=== PATIENT | male | born 1965 | race Caucasian/White ===

== ENCOUNTER 2019-02-20 08:10 | Emergency (ER) | payer BC ==
[~2019-02-20] VITALS: Ht 175.3 cm; Wt 68.2 kg
[2019-02-20 08:13] VITALS: Ht 175.3 cm; Wt 68.2 kg
[2019-02-20] MEDS ORDERED: TENORMIN50 MG PO (08:14)
[2019-02-20 08:43] LABS: HEMATOCRIT 40.2 % (42.0-54.0); HEMOGLOBIN 14.2 g/dL (13.5-17.5); LYMPHOCYTES 12.7 % (15-50); MCH 32.7 pg (26.0-34.0); MCHC 35.3 g/dL (31.0-37.0); MCV 92.6 fL (80.0-100.0); MEAN PLATELET VOLUME 10.3 fL (7.4-10.4); NEUTROPHILS 82.4 % (40-80); PLATELET COUNT 247 10x3/uL (130-400); RBC 4.34 10x6/uL (4.20-6.10); RDW 12.6 % (11.5-14.5); WBC 7.5 10x3/uL (4.8-10.8)
[2019-02-20 08:49] LABS: CALC OSMOLALITY 279 mosm/kg (275-300); CALCIUM 9.3 mg/dL (8.5-10.1); CARBON DIOXIDE 30.2 mmol/L (21.0-32.0); CHLORIDE - SERUM 103 mmol/L (98-107); CREATININE - SERUM 0.8 mg/dL (0.6-1.3); GLUCOSE 103 mg/dL (74-106); POTASSIUM - SERUM 4.3 mmol/L (3.5-5.1); SODIUM 141 mmol/L (136-145); UREA NITROGEN 10 mg/dL (7-18); eGFR NON AFRICAN AMERICAN > 90 mL/min (90-120)
[2019-02-20 08:58] LABS: APTT 30.7 SECONDS (22.8-39.4); INR 1.06 (0.85-1.17); PROTIME 13.3 SECONDS (11.6-15.0)
[2019-02-20 09:06] LABS: ALKALINE PHOSPHATASE 88 U/L (46-116); ALT (SGPT) 24 U/L (10-68); BILIRUBIN - TOTAL 0.93 mg/dL (0.2-1.3); CKMB 0.6 U/L (0.0-3.6); CREATINE KINASE 45 UL (21-232); MAGNESIUM - SERUM 2.3 mg/dL (1.8-2.4); PROTEIN - SERUM 7.6 g/dL (6.4-8.2); TROPONIN-I < 0.017 ng/mL (0.000-0.060)
[2019-02-20] MEDS ORDERED: MECLIZINE HCL25 MG PO (09:55)
[2019-02-20 10:27] VITALS: BP 123/84
== END 2019-02-20 10:28 | disposition home or self-care (01) ==
LOC: D.ER 08:10
PROVIDERS: Family Medicine
DX: R42 Dizziness and giddiness (principal); I10 Essential (primary) hypertension